=== PATIENT | female | born 1955 | race Caucasian/White ===

== ENCOUNTER 2016-11-20 11:52 | Inpatient (IN) | payer MEDICARE, OTHER ==
[~2016-11-20] VITALS: Ht 152.4 cm; Wt 120.9 kg
[~2016-11-20 11:52] MED LIST: CALCIUM 600+D T1 TA1; CYMBALTA60 MG PO; DITROPAN X5 MG/BOTTL PO; FISH OIL 1,0001 CA1 PO; GREEN TEA PO; LOW DOSE ASPIRI81 M1 PO; MOBIC7.5 MG PO; MULTIPLE VITAMI1 TA1 PO; PLAVIX75 MG PO; POTASSIUM99 M1 PO; PROBIOTIC1 EAC1 PO; SLOW RELEASE I160 MG PO; SYNTHROID200 MC1 PO; TURMERIC PO; ZANTAC150 MG PO; ZYRTEC10 MG PO
--- NOTE | 2016-11-20 12:20 | NUR ---
RECEIVED TO ROOM 2207 AT THIS TIME. ALERT AND ORIENTED AND AMBULATES INDEPENDENTLY. 20G IV SITED TO PT'S LEFT HAND X2 ATTEMPTS. FAMILY AT BEDSIDE AND HISTORY/MEDS BEING OBTAINED PER FLOWSHEET. CALL LIGHT IN REACH, ORIENTED PT TO ROOM.
[2016-11-20 12:46] LABS: BASOPHILS 0.3 % (0.0-2.0); HEMATOCRIT 32.6 % (36.0-48.0); HEMOGLOBIN 9.9 g/dL (12-16); IMMATURE GRANULOCYTES 0.2 % (0-5); LYMPHOCYTES 18.6 % (15-50); MCH 27.7 pg (26.0-34.0); MCHC 30.4 g/dL (31.0-37.0); MCV 91.1 fL (80.0-100.0); MEAN PLATELET VOLUME 9.6 fL (7.4-10.4); MONOCYTES 5.8 % (2-11); NEUTROPHILS 71.1 % (40-80); PLATELET COUNT 407 10x3/uL (130-400); RBC 3.58 10x6/uL (4.00-5.40); RDW 15.1 % (11.5-14.5); WBC 5.8 10x3/uL (4.8-10.8)
[2016-11-20] MEDS ORDERED: SYNTHROID25 MCG PO (12:52)
[2016-11-20] MEDS ORDERED: LEXAPRO20 MG PO (12:53)
[2016-11-20] MEDS ORDERED: VITAMIN D250000 UNIT PO (12:55)
[2016-11-20] MEDS ORDERED: VIMOVO 500-201 EACH PO (12:56)
[2016-11-20] MEDS ORDERED: CHLOR-TRIMETON4 MG PO (12:57)
--- NOTE | 2016-11-20 13:07 | NUR ---
SCHEDULED MEDICATIONS ADMINISTERED AT THIS TIME. DENIES NEEDS AT PRESENT TIME. CALL LIGHT IN REACH, WILL CONTINUE WITH PLAN OF CARE.
[2016-11-20 13:09] LABS: ALBUMIN 3.4 g/dL (3.4-5.0); ANION GAP 11.6 mmol/L (8-16); BILIRUBIN - TOTAL 0.25 mg/dL (0.2-1.3); CALCIUM 8.7 mg/dL (8.5-10.1); CARBON DIOXIDE 29.2 mmol/L (21.0-32.0); CREATININE - SERUM 0.9 mg/dL (0.6-1.3); POTASSIUM - SERUM 3.8 mmol/L (3.5-5.1)
--- NOTE | 2016-11-20 14:00 | NUR ---
SCHEDULED ZITHROMAX ADMINISTERED AT THIS TIME. PT DENIES NEEDS AT PRESENT TIME. CALL LIGHT IN REACH, WILL CONTINUE WITH PLAN OF CARE.
[2016-11-20 14:01] VITALS: BP 111/61; BMI 50.8
[2016-11-20 16:06] VITALS: BP 130/61
--- NOTE | 2016-11-20 16:49 | NUR ---
Patient Name: ALLAN SOLARES Admission Status: Urgent Accout number: [id number] Admission Date: 11-20-2016 : 1955 Admission Diagnosis:PNEUMONIA, UNSPECIFIED ORGANISM Attending: MARILUZ Current LOS: 1 Anticipated DC Date: 11-22-2016 Planned Disposition: Home or Self Care Primary Insurance: MEDICARE A & B Discharge Planning Comments: CM MET WITH PATIENT TO DISCUSS DISCHARGE PLANNING/NEEDS. THE PATIENT STATES SHE LIVES ALONE IN A SINGLE STORY HOME WITH 3 STEPS. SHE STATES SHE IS INDEPENDENT OF ALL ADL'S AND REQUIRES NO DME EQUIPMENT. SHE DECLINES THE NEED FOR HOME HEALTH AT THIS TIME. SHE STATES HER HOME ENVIRONMENT IS SAFE TO RETURN TO AND HER BROTHER "GHADA RITCHIE" ([phone]) WILL BE HER TRANSPORTATION HOME AT DISCHARGE. CM WILL FOLLOW AND ASSIST NEEDED FOR DISCHARGE PLANNING/NEEDS. Blocker Hand: Orly Osei RN/CM No. Question Answer Score * Is the patient Alert and Oriented? Yes 0 * How many steps to enter\\exit or inside your home? 3 0 * PCP Dr Olsen 0 * Pharmacy [facility] [phone] 0 * Preadmission Environment Home Alone 0 * ADLs Independent 0 * Equipment None 0 * List name and contact numbers for known caregivers / representatives who currently or will assist patient after discharge: Dayron Ritchie (brother [email or web address]) [phone] 0 * Community resources currently utilized None 0 * Additional services required to return to the preadmission environment? No 0 * Can the patient safely return to the preadmission environment? Yes 0 * Has this patient been hospitalized within the prior 30 days at any hospital? No 0 Grand Total: 0
--- NOTE | 2016-11-20 17:00 | NUR ---
SCD'S OFFERED TO PT AND EXPLAINED TE USE IN HELPING TO PREVENT BLOOD CLOTS. PT VERBALIZED UNDERSTANDING.
[2016-11-20 20:31] VITALS: BP 138/65
--- NOTE | 2016-11-20 21:34 | NUR ---
PT LAYING IN BED NO DISTRESS OBSERVED IVP ANTIBX ADMIN ORDERED AND EXTRA PILLOW PROVIDED TO PT AT THIS TIME RESPERATIONS EVEN AND UNLBAORED AND PT STATES " I FEEL SO MUCH BETTER THOSE MEDS FROM EARLIER ARE WONDERFUL" BED LOW AND LOCKED AND WILL MONITOR
[2016-11-21 00:15] VITALS: BP 144/55
[2016-11-21 04:30] VITALS: BP 119/61
[2016-11-21 05:00] LABS: BASOPHILS 0.1 % (0.0-2.0); EOSINOPHILS 0 % (0-7); HEMATOCRIT 31.1 % (36.0-48.0); HEMOGLOBIN 9.4 g/dL (12-16); IMMATURE GRANULOCYTES 0.3 % (0-5); LYMPHOCYTES 4.2 % (15-50); MCH 27.1 pg (26.0-34.0); MCHC 30.2 g/dL (31.0-37.0); MCV 89.6 fL (80.0-100.0); MEAN PLATELET VOLUME 9.7 fL (7.4-10.4); MONOCYTES 0.8 % (2-11); NEUTROPHILS 94.6 % (40-80); PLATELET COUNT 420 10x3/uL (130-400); RBC 3.47 10x6/uL (4.00-5.40); RDW 15.3 % (11.5-14.5)
[2016-11-21 05:03] LABS: WBC 7.4 10x3/uL (4.8-10.8)
[2016-11-21 05:21] LABS: ALBUMIN 3.2 g/dL (3.4-5.0); ALKALINE PHOSPHATASE 125 U/L (46-116); ALT (SGPT) 21 U/L (10-68); BILIRUBIN - TOTAL 0.15 mg/dL (0.2-1.3); CALC OSMOLALITY 284 mosm/kg (275-300); CALCIUM 8.6 mg/dL (8.5-10.1); CARBON DIOXIDE 27.5 mmol/L (21.0-32.0); CHLORIDE - SERUM 106 mmol/L (98-107); CREATININE - SERUM 0.8 mg/dL (0.6-1.3); GLUCOSE 189 mg/dL (74-106); MAGNESIUM - SERUM 1.9 mg/dL (1.8-2.4); PHOSPHOROUS 3.1 mg/dL (2.5-4.9); POTASSIUM - SERUM 4.2 mmol/L (3.5-5.1); PROTEIN - SERUM 7.1 g/dL (6.4-8.2); SODIUM 141 mmol/L (136-145); UREA NITROGEN 10 mg/dL (7-18); eGFR NON AFRICAN AMERICAN 77 mL/min (90-120)
--- NOTE | 2016-11-21 07:00 | NUR ---
PT REC'D FROM [facility]. RESTING IN BED WITH BREAKFAST TRAY IN ROOM. AAOX4. NO COMPLAINTS. LUNG SOUNDS CLEAR AND EQUAL BILAT. REGULAR HEART RATE AND RHYTHM. BED LOW, CALL LIGHT IN REACH, DENIES NEEDS. CPOC.
[2016-11-21 07:55] VITALS: BP 160/83
--- NOTE | 2016-11-21 09:15 | NUR ---
PT UNHOOKED FROM IV AT THIS TIME TO RECEIVE BATH.
--- NOTE | 2016-11-21 10:08 | NUR ---
NO NEEDS VOICED. CALL LIGHT IN REACH. WILL CONT. PLAN OF CARE.
[2016-11-21 10:12] VITALS: Ht 152.4 cm; Wt 120.9 kg
[2016-11-21 11:26] LABS: % SATURATION 3 % (15-55); IRON 12 ug/dl (35-150); TOTAL IRON BIND CAPACITY 399 ug/dl (260-445); UNSAT IRON BIND CAPACITY 387 ug/dl (150-375)
[2016-11-21 11:47] VITALS: BP 129/70
--- NOTE | 2016-11-21 13:38 | NUR ---
SPUTUM SAMPLE COLLECTED BY CAROL RT. TAKEN TO LAB BY HIM WELL.
[2016-11-21 15:30] VITALS: BP 136/77
--- NOTE | 2016-11-21 19:19 | NUR ---
INITIAL ROUNDS COMPLETED. PT DENIED ANY DISCOMFORT. WILL CONTINUE TO MONITOR. SR UP X2, CALL LIGHT WITHIN REACH.
[2016-11-21 20:26] VITALS: BP 140/63
--- NOTE | 2016-11-21 22:25 | NUR ---
ASSESSMENT COMPLETED AT 1930 HRS. VSS. IV TO L HADN SL. LUNGS DIMINISHED TO RLL. ALERT AND ORIENTED TO PERSON, PLACE AND TIME. PM MEDS GIVEN. SCD'S PLACED AT THTAT TIME PER PT REQUEST. WILL CONTINUE TO MONITOR. SR UP X2, CALL LIGHT WITHIN REACH.
--- NOTE | 2016-11-22 00:25 | NUR ---
PT AWAKE; DENIES ANY DISCOMFORT. SCD'S OFF PER PT'S REQUEST. WILL CONTINUE TO MONITOR.
[2016-11-22 00:35] VITALS: BP 131/76
--- NOTE | 2016-11-22 02:59 | NUR ---
PT RESTING WITH EYES CLOSED. RESP EVEN AND REGULAR. SR UP X2, CALL LIGHT WITHIN REACH.
[2016-11-22 04:17] VITALS: BP 123/62
--- NOTE | 2016-11-22 04:22 | NUR ---
PT AWAKE; DENIES ANY DISCOMFORT. WILL CONTINUE TO MONITOR.
[2016-11-22 05:06] LABS: BASOPHILS 0.3 % (0.0-2.0); EOSINOPHILS 0.7 % (0-7); HEMATOCRIT 29.2 % (36.0-48.0); HEMOGLOBIN 8.9 g/dL (12-16); IMMATURE GRANULOCYTES 0.3 % (0-5); LYMPHOCYTES 23.6 % (15-50); MCH 27.2 pg (26.0-34.0); MCHC 30.5 g/dL (31.0-37.0); MCV 89.3 fL (80.0-100.0); MEAN PLATELET VOLUME 9.6 fL (7.4-10.4); MONOCYTES 10.1 % (2-11); PLATELET COUNT 414 10x3/uL (130-400); RBC 3.27 10x6/uL (4.00-5.40); RDW 15.3 % (11.5-14.5); WBC 7.7 10x3/uL (4.8-10.8)
[2016-11-22 05:28] LABS: CALCIUM 8.9 mg/dL (8.5-10.1); CARBON DIOXIDE 29.2 mmol/L (21.0-32.0); CHLORIDE - SERUM 106 mmol/L (98-107); CREATININE - SERUM 0.7 mg/dL (0.6-1.3); SODIUM 144 mmol/L (136-145); eGFR NON AFRICAN AMERICAN 90 mL/min (90-120)
[2016-11-22 05:36] LABS: CALC OSMOLALITY 287 mosm/kg (275-300); GLUCOSE 95 mg/dL (74-106); POTASSIUM - SERUM 3.1 mmol/L (3.5-5.1); UREA NITROGEN 14 mg/dL (7-18)
--- NOTE | 2016-11-22 06:41 | NUR ---
VSS THROUGHOUT NIGHT. AM K+ 3.1. KCL 40 MEQ IN 180CC OF APPLE JIUCE GIVEN PER ELECTROLYTE PROTOCOL. NEEDS MET; WILL CONTINUE TO MONITOR.
--- NOTE | 2016-11-22 07:25 | NUR ---
SLEEPING AT THIS TIEM. RESPIRATIONS EVEN AND NON LABORED. AT BEDSIDE. IV TO RIGHT WRIST PATENT. CALL CHAN L[place]ON, SRX2 WITH ALYCE MAT ALARM ON AND IN USE. DOOR REMAINS OPEN. JUSTINE CONTINUE WITH PLAN OF CARE.
[2016-11-22 07:41] VITALS: BP 141/67
[2016-11-22 11:39] VITALS: BP 139/70
[2016-11-22 15:21] VITALS: BP 133/64
--- NOTE | 2016-11-22 17:04 | NUR ---
ALERT AND ORIENTED X4. SITTING UP IN BED. COMPLAINS OF LT HAND IV CAUSING MIDDLE FINGER TO SWELL. ASSESS PATENTCY. GOOD BLOOD RETURN. FLUSHES WITHOUT DIFFICULTY. DENIES PAIN. SALINE LOCK IV. DENIES SOB. CONTINUE PLAN OF CARE. BED LOCKED AND LOW. CALL LIGHT IN REACH. TWO SIDERAILS UP.
--- NOTE | 2016-11-22 19:30 | NUR ---
SITTING UP ON SIDE OF BED, DENIES NEEDS AT THIS TIME. ON ROOM AIR WITH NO S/S OF ACUTE DISTRESS NOTED. UP AD PENNIE W/O DIFF. ON LOVENOX TO PREVENT DVTS, NOT WEARING SCDS.LEFT HAND IV W/O R/S NOTED AT SITE. HOB UP SR UP X2, C/L IN REACH. CONTINUE TO MONITOR.
[2016-11-22 20:30] VITALS: BP 111/78
[2016-11-23 00:30] VITALS: BP 133/59
[2016-11-23 04:45] VITALS: BP 157/73
[2016-11-23 05:25] LABS: BASOPHILS 0.1 % (0.0-2.0); EOSINOPHILS 0 % (0-7); HEMATOCRIT 33.5 % (36.0-48.0); HEMOGLOBIN 10.3 g/dL (12-16); IMMATURE GRANULOCYTES 0.4 % (0-5); LYMPHOCYTES 10.1 % (15-50); MCH 27.1 pg (26.0-34.0); MCHC 30.7 g/dL (31.0-37.0); MCV 88.2 fL (80.0-100.0); MEAN PLATELET VOLUME 9.2 fL (7.4-10.4); MONOCYTES 4.5 % (2-11); NEUTROPHILS 84.9 % (40-80); PLATELET COUNT 462 10x3/uL (130-400); RDW 15.1 % (11.5-14.5); WBC 9.5 10x3/uL (4.8-10.8)
[2016-11-23 06:08] LABS: CALC OSMOLALITY 280 mosm/kg (275-300); CALCIUM 9.4 mg/dL (8.5-10.1); CARBON DIOXIDE 28.3 mmol/L (21.0-32.0); CHLORIDE - SERUM 101 mmol/L (98-107); CREATININE - SERUM 0.7 mg/dL (0.6-1.3); GLUCOSE 148 mg/dL (74-106); MAGNESIUM - SERUM 2.1 mg/dL (1.8-2.4); POTASSIUM - SERUM 3.9 mmol/L (3.5-5.1); SODIUM 139 mmol/L (136-145); UREA NITROGEN 12 mg/dL (7-18); eGFR NON AFRICAN AMERICAN 90 mL/min (90-120)
[2016-11-23 08:00] VITALS: BP 141/74
[2016-11-23 09:09] LABS: IMMUNOGLOBULIN A 218 mg/dL (87-352); IMMUNOGLOBULIN G 795 mg/dL (700-1600)
[2016-11-23 12:00] VITALS: BP 139/69
[2016-11-23 13:13] LABS: IMMUNOGLOBULIN E 51 IU/mL (0-100)
--- NOTE | 2016-11-23 14:23 | NUR ---
ALERT AND ORIENTED X4. SITTING UP IN BED. 2nd IV SITED TO RT FA 22G SUCCESSFUL X1 ATTEMPT BY STUDENT NURSE. 2nd IV PLACED DUE TO MULTIPLE IV ANTIBIOTICS ORDERED. DENIES PAIN. FREQUENT PRODUCTIVE COUGH. SPUTUM THICK AND PURULENT. CONTINUE PLAN OF CARE. BED LOCKED AND LOW. CALL LIGHT IN REACH. TWO SIDERAILS UP.
[2016-11-23 16:00] VITALS: BP 135/83
--- NOTE | 2016-11-23 19:30 | NUR ---
SITTING UP IN BED, ALERT AND ORIENTED X3, RESP UNLAB, ON ROOM AIR. UP AD PENNIE W/O DIFF. GETTING READY TO TAKE A SHOWER. DENIES NEEDS. C/L IN REACH. CONTINUE TO MONITOR.
[2016-11-23 20:00] VITALS: BP 143/83
[2016-11-24] VITALS: BP 115/59
--- NOTE | 2016-11-24 01:35 | NUR ---
EYES CLOSED, RESP EVEN AND UNLAB WITH NO S/S OF ACUTE DISTRESS NOTED. HAS BEEN COUGHING UP QUITE A BIT OF MUCOUS THIS SHIFT, VLADISLAV WELL. CONTIN UE TO MONITOR.
[2016-11-24 04:00] VITALS: BP 106/60
--- NOTE | 2016-11-24 08:00 | NUR ---
ALERT AND ORIENTED X4. SITTING UP IN BED. BP TAKEN WITH MACHINE READS 175/111. RECHECK MANUALLY. MANUAL BP 134/78. NOTIFY OF VITAL SIGNS PER REQUEST. DENIES PAIN OR SOB. PRODUCTIVE COUGH YELLOW WHITE SPUTUM. CONTINUE PLAN OF CARE. BED LOCKED AND LOW. CALL LIGHT IN REACH. RECIEVES LOVENOX INJ.
[2016-11-24 08:11] VITALS: BP 175/111
[2016-11-24 09:19] LABS: FOLATE (FOLIC ACID) - SERUM 14.8 ng/mL (>3.0)
--- NOTE | 2016-11-24 11:03 | NUR ---
Nutrition follow-up: Diet: REgular PO intake 100% of meals Labs reviewed +BM RDN following.
[2016-11-24 11:58] VITALS: BP 114/70
[2016-11-24] MEDS ORDERED: DOXYCYCLINE HY100 M2 PO (13:51)
--- NOTE | 2016-11-24 15:00 | NUR ---
Patient Name: ALLAN SOLARES Encounter No: [id number] : 1955 Primary Insurance: MEDICARE A & B Anticipated DC Date: 11-24-2016 Planned Disposition: Home or Self Care DCP follow-up note: CM MET WITH PT IN ROOM TO DISCUSS DISCHARGE NEEDS AND PLANNING. CM DISCUSSED AVAILABILITY OF HOME HEALTH, REHAB SERVICES AND MEDICAL EQUIPMENT. PT DENIES DISCHARGE NEEDS. PT HAS SOMEONE HERE TO TRANSPORT HER HOME TODAY. IMPORTANT MESSAGE FROM MEDICARE PROVIDED AND EXPLAINED. Andrew Martinez, CASE MANAGEMENT
[2016-11-24 15:55] VITALS: BP 136/69
--- NOTE | 2016-11-24 18:10 | NUR ---
ALERT AND ORIENTED X4. DISCHARGE INSTRUCTIONS GIVEN VERBALLY AND WRITTEN. DC RT FA IV TIP INTACT. DISCHARGE PAPERS SIGNED ON CHART. ESCORT TO RIDE VIA WHEELCHAIR. REMAINS FREE FROM INJURY.
== END 2016-11-24 18:12 | disposition home or self-care (01) | DRG 179 ==
LOC: D.M2 11:52
PROVIDERS: Family Medicine; Internal Medicine Pulmonary Disease; ADMIT Family Medicine
DX: J15.6 Pneumonia due to other Gram-negative bacteria (principal); I25.10 Atherosclerotic heart disease of native coronary artery without angina pectoris; D64.9 Anemia, unspecified; E03.9 Hypothyroidism, unspecified; E87.6 Hypokalemia; J15.212 Pneumonia due to Methicillin resistant Staphylococcus aureus; J13 Pneumonia due to Streptococcus pneumoniae; J45.909 Unspecified asthma, uncomplicated; G47.33 Obstructive sleep apnea (adult) (pediatric); K21.9 Gastro-esophageal reflux disease without esophagitis; Z87.01 Personal history of pneumonia (recurrent); Z95.5 Presence of coronary angioplasty implant and graft

== ENCOUNTER → 2016-12-03 08:23 | Outpatient (CLI) | payer MEDICARE, OTHER ==
[2016-11-21 10:12] VITALS: BMI 50.6
[~2016-12-03 08:23] MED LIST changes: +CHLOR-TRIMETON4 MG PO; +DOXYCYCLINE HY100 M2 PO; +LEXAPRO20 MG PO; +SYNTHROID25 MCG PO; +VIMOVO 500-201 EACH PO; +VITAMIN D250000 UNIT PO
== END | disposition home or self-care (01) ==
LOC: D.CT 08:23
DX: R10.11 Right upper quadrant pain (principal)

== ENCOUNTER 2017-11-29 10:55 | Day surgery (SDC) | payer MEDICARE, OTHER ==
[~2017-11-29] VITALS: Ht 152.4 cm; Wt 118.2 kg
--- NOTE | ~2017-11-29 | OP ---
PATIENT NAME: ALLAN SOLARES MEDICAL RECORD: [id number] :[birth year] LOCATION:[facility] ADMISSION DATE: SURGEON: BRODY WALDEN DO DATE OF OPERATION: 11/29/2017 PROCEDURE: Colonoscopy. INDICATIONS FOR PROCEDURE: Fecal occult blood positive and right lower quadrant/right upper quadrant abdominal pain. SCOPE: [employer] video pediatric colonoscope. MEDICATIONS: Propofol 350 mg IV per anesthesia. WITHDRAWAL TIME: 11 minutes. ESTIMATED BLOOD LOSS: None. COMPLICATIONS: None. FINDINGS: Informed consent was given. The patient was made comfortable with the above medication. After reaching an adequate level of sedation by slow IV push, the patient was placed on her left side. A digital rectal examination was performed and was normal. The endoscope was then advanced under direct visualization through the rectum to the cecum with visualization of the appendiceal orifice and ileocecal valve. The endoscope was slowly withdrawn and mucosa was carefully examined. The prep quality was good. There were no polyps visualized on today's examination. There was evidence of mild to moderate diverticulosis involving the descending and sigmoid colon. There was no evidence of diverticulitis. Retroflexion was performed in the rectum with normal appearing rectal wall. The endoscope was withdrawn from the patient. The patient tolerated the procedure well and there were no complications. IMPRESSION: 1. Mild to moderate diverticulosis of the left side of the colon. 2. Otherwise normal colonoscopy to cecum. PLAN AND RECOMMENDATIONS: 1. Discharge home when recovery parameters are met. 2. High fiber diet. 3. Continue current medications. 4. Recall colonoscopy in 5-7 years. TRANSINT:[id number] Voice Confirmation ID: [id number] DOCUMENT ID: [id number] BRODY WALDEN DO at 1119 CC: [id number] DICTATION DATE: 11/29/17 1428 KNOCK OUT HAND: 11/29/17 1443 [facility] 11/29/17 [place] [id number]
[2017-11-29] MEDS ORDERED: HYDROCHLOROTH12.5 M1 PO (11:21)
[2017-11-29] MEDS ORDERED: OMEPRAZOLE20 M1 PO (11:21)
[2017-11-29] MEDS ORDERED: VITAMIN D31000 UNI2 PO (11:22)
[2017-11-29 11:32] VITALS: BP 119/70; Ht 152.4 cm; Wt 118.2 kg
[2017-11-29 12:22] LABS: HEMATOCRIT 41.2 % (36.0-48.0); HEMOGLOBIN 13.5 g/dL (12-16); MCH 29.9 pg (26.0-34.0); MCHC 32.8 g/dL (31.0-37.0); MCV 91.4 fL (80.0-100.0); MEAN PLATELET VOLUME 9.8 fL (7.4-10.4); RBC 4.51 10x6/uL (4.00-5.40); RDW 13.8 % (11.5-14.5); WBC 7.9 10x3/uL (4.8-10.8)
== END 2017-11-29 15:35 | disposition home or self-care (01) ==
LOC: D.OPS 10:55
PROVIDERS: Anesthesiology
DX: R10.31 Right lower quadrant pain (principal); R10.11 Right upper quadrant pain; E03.9 Hypothyroidism, unspecified; K21.9 Gastro-esophageal reflux disease without esophagitis; Z01.812 Encounter for preprocedural laboratory examination; R19.5 Other fecal abnormalities; K57.30 Diverticulosis of large intestine without perforation or abscess without bleeding